=== PATIENT | female | born 1990 | race Caucasian/White ===

== ENCOUNTER 2021-11-27 22:42 | Emergency (ER) | payer OTHER, SELFPAY ==
[2021-11-27 22:47] VITALS: BP 119/92; PULSE 74; RESP 18; TEMP 36; O2SAT 100; BMI 33.0
--- NOTE | 2021-11-27 23:31 | ED.MEDCLEAR ---
HPI - Medical Clearance General Chief complaint: Body Fluid Exposure Stated complaint: needle stick - work related Time Seen by Provider: 11/27/21 22:48 Source: patient Mode of arrival: ambulatory History of Present Illness HPI Narrative: 31-year-old female with no significant past medical history presenting to the ED complaining needlestick s/p giving patient insulin [employer]. Patient is up-to-date on vaccinations. No blood on hub. Unknown HIV status of patient. MD complaint: medical clearance requested Onset (ago): minute(s) Related Information Allergies Allergy/AdvReac Type Severity Reaction Status Date / Time No Known Allergies Allergy Verified 11/27/21 22:47 Review of Systems Review of Systems: Constitutional: No Fever, No Chills ENT/Mouth: No Ear Pain, No sore throat, No Rhinorrhea, No Swallowing Difficulty Cardiovascular: No Chest Pain, No SOB Respiratory: No Cough Gastrointestinal: No Nausea, No Abdominal pain Musculoskeletal: No joint pain, No Myalgias Skin: + Skin Lesions, No rash Neuro: No Weakness, No Numbness, No Paresthesias Yes all other systems are reviewed and are negative [facility] Past Medical History Attestation statement: The following information was validated with the patient. Social History Social History Advance Directives: No Advance Directives Information Provided: No Physical Exam Vital Signs: Vital Signs: Last Vital Signs Temp 96.8 F 11/27/21 22:47 Pulse 74 11/27/21 22:47 Resp 18 11/27/21 22:47 BP 119/92 H 11/27/21 22:47 Pulse Ox 100 11/27/21 22:47 BMI result Body Mass Index 33.0 Const: General: cooperative, healthy appearing and no acute distress Orientation/consciousness: patient oriented x3 Limitations: no limitations HEENT: Head: Yes normal to inspection Ears: hearing grossly normal bilaterally General nose exam: Normal external nose present Face and sinus: Yes normal facial exam Eyes: General: appearance normal, both eyes and all related structures EOM: EOMs intact bilaterally Neck: Neck: Yes normal visual inspection Resp: Effort & Inspection: normal respiratory effort and no respiratory distress Cardio: Rate: regular rate Peripheral pulses: radial pulses present Skin: Other: No appreciable puncture site Rashes: no rashes Wounds: no wounds Neuro: General: patient oriented x3, gait normal and tone normal Gait exam (Neuro): Normal gait present Extrem: General: Yes normal to inspection Course Course Course Narrative: -labs unremarkable. HIV nonreactive > patient provided with PEP kit MDM - Medical Clearance MDM Narrative Medical decision making narrative: 31-year-old female with no significant past medical history presenting to the ED complaining needlestick s/p giving patient insulin [employer]. On exam VSS, NAD, will obtain post exposure labs on patient. Other patient in hospital, consent obtained for his labs as well. Plan: Will provide patient with PEP kit, if other patients HIV is negative can disregard Medical Records Attestation: I reviewed the patient's medical records. Lab Data Attestation: I reviewed the patient's lab results. Result diagrams: 11/28/21 01:22 11/27/21 23:34 Labs: Lab Results 11/27/21 11/27/21 11/28/21 Range/Units 23:34 23:34 01:22 WBC 6.8 (4.8-10.8) X10*3/uL RBC 4.10 L (4.20-5.50) X10*6/uL Hgb 12.5 (12.0-16.0) g/dl Hct 36.8 L (37.0-47.0) % MCV 89.8 (80.0-98.0) fL MCH 30.5 (27.0-33.0) pg MCHC 34.0 (31.0-35.0) g/dl RDW 11.9 (11.0-16.0) % Plt Count 201 (160-400) X10*3/uL MPV 10.2 (9.4-12.3) fL Immature Gran % (Auto) 0.1 (0.0-0.4) % Neut % (Auto) 71.8 (45-73) % Lymph % (Auto) 17.8 L (20-40) % [place] % (Auto) 9.0 (2-11) % Eos % (Auto) 1.0 (0-4) % Baso % (Auto) 0.3 (0-2) % Lymph # (Auto) 1.2 (1.2-4.9) X10*3/uL [place] # (Auto) 0.6 (0.1-1.2) X10*3/uL Eos # (Auto) 0.1 (0.0-0.4) X10*3/uL Baso # (Auto) 0.0 (0.0-0.2) X10*3/uL Abs Immat Gran (auto) 0.01 (0.00-0.03) X10*3/uL Absolute Neuts (auto) 4.9 (2.0-8.3) x10*3/uL Absolute Nucleated RBC 0.000 (0.0-0.012) X10*3/uL Nucleated RBC % (auto) 0.0 (0.0-0.2) /100WBC Sodium 137 (135-145) mmol/L Potassium 4.5 (3.3-5.1) mmol/L Chloride 105 (96-108) mmol/L Carbon Dioxide 23 (22-29) mmol/L Anion Gap 14 (12-20) BUN 11 (9-16) mg/dL Creatinine 0.70 (0.5-1.4) mg/dL Estim Creat Clear Calc 113.1 Estimated GFR > 60 Random Glucose 94 (60-115) mg/dL Calcium 9.4 (8.4-10.2) mg/dL Total Bilirubin 0.4 (0.0-1.0) mg/dL Direct Bilirubin 0.2 (0.0-0.5) mg/dL AST 15 (5-31) U/L ALT 11 (0-31) U/L Alkaline Phosphatase 61 (39-117) U/L Total Protein 7.0 (6.5-8.0) g/dL Albumin 4.3 (3.5-5.0) g/dL Lipase 57 (8-78) U/L HIV 1&2 Ab/P24 Ag 4thGn Nonreactive (Nonreactive) Discharge Plan Discharge Clinical Impression: Employee exposure to body fluids Patient Disposition: Home, Self-Care Instructions: Body Substance Exposure (ED) Additional Instructions: Your labs are unremarkable If patients labs indicate he has HIV you need to take PEP kit that was provided to you. If negative you may disregard Please follow-up with [facility] Referrals: [facility] [Outside] Airam Byrd MD [Physician] -
[2021-11-28 00:01] LABS: Alanine Aminotransferase 11 U/L (0-31); Albumin Level 4.3 g/dL (3.5-5.0); Alkaline Phosphatase 61 U/L (39-117); Anion Gap 14 (12-20); Aspartate Amino Transferase 15 U/L (5-31); Bilirubin Direct 0.2 mg/dL (0.0-0.5); Bilirubin Total 0.4 mg/dL (0.0-1.0); Blood Urea Nitrogen 11 mg/dL (9-16); Calcium 9.4 mg/dL (8.4-10.2); Carbon Dioxide 23 mmol/L (22-29); Chloride 105 mmol/L (96-108); Creatinine Clr Calc Pharmacy 113.1; Estimated Glomerular Filt Rate > 60; Glucose Random 94 mg/dL (60-115); Potassium 4.5 mmol/L (3.3-5.1); Sodium 137 mmol/L (135-145)
[2021-11-28 00:40] LABS: HIV AB/AG Nonreactive (Nonreactive); HIV Num 1 0.08 S/CO (0.00-0.99)
[2021-11-28 01:07] LABS: Lipase 57 U/L (8-78)
[2021-11-28 01:27] LABS: Basophils Percent Auto 0.3 % (0-2); Eosinophils Absolute Auto 0.1 X10*3/uL (0.0-0.4); Hematocrit 36.8 % (37.0-47.0); Hemoglobin 12.5 g/dl (12.0-16.0); Imm Gran Abs Auto 0.01 X10*3/uL (0.00-0.03); Imm Gran Pct Auto 0.1 % (0.0-0.4); Lymphocytes Absolute Auto 1.2 X10*3/uL (1.2-4.9); Lymphocytes Percent Auto 17.8 % (20-40); MANUAL DIFF FLAG NO; Mean Corpuscular Hemoglobin 30.5 pg (27.0-33.0); Mean Corpuscular Volume 89.8 fL (80.0-98.0); Mean Platelet Volume 10.2 fL (9.4-12.3); Monocytes Absolute Auto 0.6 X10*3/uL (0.1-1.2); Neutrophils Absolute Auto 4.9 x10*3/uL (2.0-8.3); Neutrophils Percent Auto 71.8 % (45-73); Platelet Count 201 X10*3/uL (160-400); Red Cell Distribution Width 11.9 % (11.0-16.0); White Blood Count 6.8 X10*3/uL (4.8-10.8)
[2021-11-28] MEDS: Post Exposure Medication Kit 1 KIT PO (01:52)
[2021-11-29 04:01] LABS: HBc Num1 0.11 S/CO (0.00-0.79); Hepatitis B Core Antibody Nonreactive (Nonreactive); ~Hepatitis C Antibody Nonreactive (Nonreactive)
[2021-11-29 04:13] LABS: HBS Num1 15.96 mIU/mL (0-7.99); ~Hepatitis B Surface Antibody REACTIVE (Nonreactive)
[2021-11-29 04:17] LABS: HBsAGNum1 0.16 S/CO (0.00-0.99); Hepatitis B Surface Antigen Negative (Negative)
== END 2021-11-28 01:54 | disposition home or self-care (01) ==
PROVIDERS: Physician Assistant; Emergency Provider Internal Medicine; PCP Registered Nurse
DX: Z04.2 Encounter for examination and observation following work accident (principal); Z77.21 Contact with and (suspected) exposure to potentially hazardous body fluids
CPT/HCPCS: 36415; 80048; 80076; 83690; 85025; 86704; 86706; 86803; 87340; 87389; 99283

== ENCOUNTER 2025-03-10 06:44 | Outpatient (REF) | payer OTHER, SELFPAY ==
[2025-03-10 07:05] LABS: MANUAL DIFF FLAG NO
[2025-03-10 07:32] LABS: Hematocrit 39.6 % (37.0-47.0); Hemoglobin 13.1 g/dl (12.0-16.0); Imm Gran Abs Auto 0.01 X10*3/uL (0.00-0.03); Imm Gran Pct Auto 0.2 % (0.0-0.4); Lymphocytes Absolute Auto 2.3 X10*3/uL (1.2-4.9); Mean Corpuscular HGB Conc 33.1 g/dl (31.0-35.0); Mean Corpuscular Hemoglobin 29.2 pg (27.0-33.0); Mean Corpuscular Volume 88.2 fL (80.0-98.0); NRBC Abs Auto 0.000 X10*3/uL (0.0-0.012); NRBC Pct Auto 0.0 /100WBC (0.0-0.2); Platelet Count 245 X10*3/uL (160-400); Red Blood Count 4.49 X10*6/uL (4.20-5.50); White Blood Count 6.3 X10*3/uL (4.8-10.8)
[2025-03-10 08:18] LABS: Hemoglobin A1C 115.0329 umol/L; Total Hemoglobin (HGBA1C) 3471.9496 umol/L
[2025-03-10 08:22] LABS: Alanine Aminotransferase 10 U/L (0-31); Albumin Level 4.4 g/dL (3.5-5.0); Alkaline Phosphatase 74 U/L (39-117); Anion Gap 13 (12-20); Aspartate Amino Transferase 17 U/L (5-31); Blood Urea Nitrogen 13 mg/dL (9-16); Calcium 8.8 mg/dL (8.4-10.2); Carbon Dioxide 24 mmol/L (22-29); Chloride 108 mmol/L (96-108); Cholesterol 152 mg/dL (<200); Estimated Glomerular Filt Rate > 60; HDL Cholesterol 60 mg/dL (>40); Potassium 3.8 mmol/L (3.3-5.1); Sodium 141 mmol/L (135-145); Total Protein 7.3 g/dL (6.5-8.0); Triglycerides 55 mg/dL (<150)
== END 2025-03-10 06:45 | disposition home or self-care (01) ==
LOC: HO.LAB 06:44
PROVIDERS: PCP Nurse Practitioner Family; Visit Provider Nurse Practitioner Family
DX: E66.812 Obesity, class 2 (principal); E66.09 Other obesity due to excess calories; Z68.36 Body mass index [BMI] 36.0-36.9, adult; N92.0 Excessive and frequent menstruation with regular cycle; R63.8 Other symptoms and signs concerning food and fluid intake
CPT/HCPCS: 36415; 80053; 80061; 83036; 84443; 85025

== ENCOUNTER 2025-04-22 09:00 | Outpatient (RCR) | payer OTHER, SELFPAY | END 2025-04-22 15:13 | disposition home or self-care (01) | LOC: HO.PT 09:00 | PROVIDERS: PCP Registered Nurse; Visit Provider Obstetrics & Gynecology | DX: M62.89 Other specified disorders of muscle (principal) | CPT/HCPCS: 97110; 97112; 97140; 97161; 97530 ==

== ENCOUNTER 2025-07-09 09:04 | Outpatient (AMB) | payer OTHER, SELFPAY ==
--- NOTE | 2025-07-09 09:04 | A.OFFPC_ITS ---
Vital Signs 07/09/25 09:07 Height 5 ft 2.01 in Weight 195 lb BMI 35.7 BP 131/66 Blood Pressure Location Rt brachial Position Sitting Respiration 14 Pulse 72 Pulse Source Pulse Oximeter Temp 97.2 F Temp Source Temporal Artery Scan Pulse Oximetry (%) 99 Oxygen Delivery Method Room Air Intake Visit Reasons: New patient physical Theatrical Trouper Required: No Accompanied by: Self / Same As Patient Allergies zolpidem (From Ambien) Allergy (Mild, Verified 07/09/25 09:23) adverse reaction Medication List - Last Reconciled 07/09/25 by Cyndi Sher PA-C No Known Home Meds Tobacco use date assessed: 07/09/25 Dental Screening Dental Screen Date: 07/09/25 Did you have a dental visit in the last 12 months?: Yes Did you have a dental problem in the last 6 months where you did not have access to dental care?: No Was dental information given to patient?: Patient has dentist HPI HPI Comments History of Present Illness Details History of Present Illness The patient is a 35-[facility]. She has a history of anxiety and reports feeling crazy overwhelmed lately, which she attributes to her new job or life in general. She previously took lorazepam 0.5 mg but did not like it. In March, she was started on Wellbutrin for anxiety and potential weight loss but experienced a significant adverse reaction where her entire left side, including under her tongue, went numb and she felt she was going to pass out. She stopped taking the medication, and these symptoms have not recurred. Her previous provider suggested she continue the medication and offered a follow-up in July. The patient has a family history of breast cancer in two maternal aunts. She has a history of a breast reduction with residual scar tissue and has had ultrasounds for lumps in the past. She previously experienced pain in her armpit and breast, which was dismissed by a prior provider as muscular. Past medical history is also significant for insomnia, for which she has taken trazodone in the past, and a history of vitamin D deficiency and headaches. Lab work from February showed a normal CBC, electrolytes, glucose, HbA1c of 5.2%, normal cholesterol, and normal thyroid function, with a mildly elevated total bilirubin of 1.1. Family history is positive for coronary artery disease and negative for colon cancer. For reproductive health, she is trying to get again and recently had her IUD removed. She reports being on control for most of her life and feels better since stopping, with resolution of brain fog. Social History - Marital Status and Family: Patient is and is trying to conceive. - Occupation: Works as a nurse in the [employer]. - Tobacco Use: Denies smoking. - Alcohol Use: Reports drinking socially . [facility] Medical History (Updated 07/09/25 @ 09:51 by Cyndi Sher PA-C) Healthcare maintenance Pre-conception counseling Adverse effect of bupropion Anxiety Encounter to establish care Insomnia Family History Father BP (high blood pressure) DVT (deep venous thrombosis) High cholesterol Mother Lupus (systemic lupus erythematosus) Social History Housing: House Alcohol intake: current Alcohol intake frequency: a few times a month Patient Tobacco Use Status: Never used Tobacco service: No Current occupational status: employed Cognitive needs: No Hearing needs: No Vision needs: No Questionnaire PHQ-9 Over the last 2 weeks, how often have you been bothered by any of the following problems? 1. Little interest or pleasure in doing things: not at all 2. Feeling down, depressed, or hopeless: not at all 3. Trouble falling or staying asleep, or sleeping too much: not at all 4. Feeling tired or having little energy: not at all 5. Poor appetite or overeating: not at all 6. Feeling bad about yourself - or that you are a failure or have let yourself or your family down: not at all 7. Trouble concentrating on things, such as reading the newspaper or watching television: not at all 8. Moving or speaking so slowly that other people could have noticed. Or the opposite - being so fidgety or restless that you have been moving around a lot more than usual: not at all 9. Thoughts that you would be better off or of hurting yourself in some way : not at all Total score: 0 Depression Screening Interpretation: Negative Depression Screening Done: Yes 80416 - PHQ-9 Billing: Yes Source: Developed by Drs. Deny L. Shonna, Joaquin Childers and colleagues, with an educational tiana from [employer]. Thrive Questionnaire Date Thrive assessed: 07/09/25 I am a: Patient What is your living situation today?: I have a steady place to live Within the past 12 months, did the food you bought not last and you didn't have the money to get more?: Never true Within the past 12 months, did you worry whether your food would run out before you got money to buy more?: Never true Do you have trouble paying for medicines?: No Do you have trouble getting transportation to medical appointments?: No Do you have trouble paying your heating and electricity bill?: No Do you have trouble taking care of your child, family member or friend?: No Do you have trouble with day-to-day activities such as bathing, preparing meals, shopping, managing finances, etc.?: No Are you currently unemployed and looking for a job?: No Are you interested in more education?: No Please select the resources that you would like help with: None THRIVE Score: 0 AUDIT C Alcohol Use Questionnaire (AUDIT-C) 1. How often do you have a drink containing alcohol?: 2-4 times a month 2. How many drinks containing alcohol do you have on a typical day when you are drinking?: 1 or 2 3. How often do you have six or more drinks on one occasion?: Never Total Score: 2 Score Reviewed/Action Taken: No SAYRA-7 AMB Questionnaire SAYRA-7 Date SAYRA - 7 assessed: 07/09/25 Feeling nervous, anxious, or on edge: 1 = Several days Not being able to stop or control worryin = Several days Worrying too much about different things: 1 = Several days Trouble relaxin = Several days Being so restless that it is hard to sit still: 0 = Not at all Becoming easily annoyed or irritable: 1 = Several days Feeling afraid as if something awful might happen: 0 = Not at all Total SAYRA-7 score (0-4 normal; 5-9 mild; 10-14 moderate; 15-21 severe): 5 Source: Developed by Yani Benavides Kurt Kroenke and colleagues, with an educational tiana from [employer]. SAYRA-7 Assessment Billing SAYRA-7 Assessment Tool: SAYRA-7 Assessment 93932 Review of Systems Narrative Review of Systems - Constitutional: Denies unintentional weight loss. - Psychiatric: Reports feeling crazy overwhelmed and a history of anxiety. - Reports history of insomnia. - Denies suicidal ideation or auditory/visual hallucinations. - Neurological: Reports a resolved episode of left-sided numbness including the arm and tongue after taking Wellbutrin. - Reports a history of headaches. - Breast: Reports a history of intermittent pain in her armpit and breast. - Denies any current lumps or pain. - Cardiovascular: Denies chest pain or shortness of breath with exertion or when lying flat. - Gastrointestinal: Denies abdominal pain, black or bloody stools. - Genitourinary: Denies urinary symptoms or blood in urine. - Denies flank pain. - HEENT: Reports history of yearly ear infections. Const All systems reviewed & are unremarkable except as noted in HPI and below Physical exam (Primary Care) Vital Signs: Last Vital Signs Temp 97.2 F 07/09/25 09:07 Pulse 72 07/09/25 09:07 Resp 14 07/09/25 09:07 BP 131/66 07/09/25 09:07 Pulse Ox 99 07/09/25 09:07 Oxygen Delivery Method Room Air 07/09/25 09:07 Care Plan Goal for BP management: <140/90 at Goal BMI result Body Mass Index 35.7 BMI Assessment/Plan discussion: High BMI High, discussed plan: lifestyle, weight reduction, dietary, physical activity, alcohol moderation and other Tobacco/Smoking Status: Tobacco use Status Tobacco use date assessed 07/09/25 07/09/25 09:14 Patient Tobacco Use Status Never used Tobacco 07/09/25 09:14 PHQ-9: PHQ-9 Score PHQ-9: Total score 0 07/09/25 09:14 Depression Screening Interpretation: Negative Thrive Assessment: Date of Thrive Assessment Date Thrive assessed 07/09/25 07/09/25 09:14 Narrative Physical Exam Appearance: Alert. Oriented X3. No acute distress. Head: Normal external exam. Normocephalic. Atraumatic. Eyes: Pupils are equal, round, and reactive to light. Extraocular movements intact. Conjunctiva and sclera normal. Eyelids normal. Ears: External auditory canal normal. Tympanic membranes normal. Some wax noted in one ear. Throat: Pharynx normal. Uvula midline. Moist mucous membranes. Neck: Normal inspection. Neck supple. Full range of motion. No adenopathy. Thyroid Normal. No meningeal signs. No neck mass noted. Cardiovascular: Normal heart rate and rhythm. Heart sound normal. No murmurs noted. Pulses normal throughout. Respiratory: No respiratory distress. Painless inspiration. Breath sounds normal. No wheezes/rales/rhonchi noted. No accessory muscle usage noted or decreased air movement noted. Back: No costovertebral angle tenderness. Full range of motion noted. Skin: Skin warm and dry. Normal skin color. Normal skin turgor. No rashes/lesions/lacerations noted. Extremities: Extremities exhibit normal range of motion. Neuro: Oriented X 3. No motor deficit. No sensory deficit. Reflexes normal. Office Procedures Flu Questionnaire Does the patient have a severe egg allergy?: No Does the patient have severe life threatening allergies?: No Does the patient have a fever or illness today?: No Has the patient ever had Guillain-Bancroft Syndrome?: No Has the patient ever had any past reaction to a flu shot?: No Immunizations Fluarix [id number] (PF) 45 mcg (15 mcg x 3)/0.5 mL IM syringe Performing Provider: Cyndi Sher PA-C [facility] Administered by: HEDY Araujo on 07/09/25 09:15 Dose Route Admin Location Dispensed Lot Number Expiration Date [facility] Medical Staff Physician 0.5 mL IM Left Deltoid 0.5 mL [id number] 02/17/26 [id number] [employer] VIS Given Date VIS Provided VIS Publication Date 07/09/25 Single Vaccine 24 Eligibility Eligibility Date Funding Source Not [facility] Eligible 07/09/25 Private Results Reviewed Results Reviewed: Results - Labs from February: - CBC: White blood cells, red blood cells, and platelets were normal. - CMP: Potassium, sodium, kidney function, and glucose were normal. - Hemoglobin A1c: 5.2%. - Liver Function Tests: Total bilirubin was slightly elevated at 1.1. - Other liver enzymes were normal. - Lipid Panel: Cholesterol was normal. - Thyroid: Normal. Coding Level of Care Code New Pt Level 4 (25530) Complex EM visit Add On G2211 Diagnoses Encounter to establish care Z76.89 Anxiety F41.9 Insomnia G47.00 Adverse effect of bupropion T43.295A Pre-conception counseling Z31.69 Healthcare maintenance Z00.00 Additional Codes PHQ-9 - 36295 - PHQ-9 Billing: Yes ([id number]) SAYRA-7 Assessment Billing - SAYRA-7 Assessment Tool: SAYRA-7 Assessment 57167 ([id number]) Time Spent (min) 60 Assessment & Plan Assessment & Plan (1) Encounter to establish care: Code(s): Z76.89 - Persons encountering health services in other specified circumstances Category: Medical Plan: The patient's history was reviewed, and recent labs from February were discussed. Orders will be placed for a urinalysis, vitamin B12, vitamin D, and magnesium level. A follow-up visit is scheduled in six months, at which time a physical will be conducted and labs will be reviewed. (2) Anxiety: Code(s): F41.9 - Anxiety disorder, unspecified Category: Medical Plan: The patient reports feeling overwhelmed and has a history of anxiety. She has previously taken lorazepam 0.5 mg. A prescription for Xanax 0.25 mg will be sent to the pharmacy. The patient was instructed she can increase the dose if needed after informing the provider and was cautioned against drinking, driving, or working while taking the medication. (3) Insomnia: Code(s): G47.00 - Insomnia, unspecified Category: Medical Plan: The patient reports a history of insomnia and has previously taken trazodone. She requested a new prescription, and trazodone 50 mg will be sent to the pharmacy for use at bedtime. (4) Adverse effect of bupropion: Comment: Cause numbness and tingling to the left side of the arm/face and tongue Code(s): T43.295A - Adverse effect of other antidepressants, initial encounter Category: Medical Plan: The patient experienced left-sided numbness and presyncope after starting Wellbutrin, which was identified as a rare side effect. The medication was discontinued by the patient, and the symptoms resolved. This will be documented as an adverse reaction, and the patient will not be re-challenged with bupropion. (5) Pre-conception counseling: Code(s): Z31.69 - Encounter for other general counseling and advice on procreation Category: Medical Plan: The patient is actively trying to conceive and recently had her IUD removed. She was taking hormonal contraception via a patch but will discontinue it. She will continue to follow up with her [employer] for preconception care. (6) Healthcare maintenance: Code(s): Z00.00 - Encounter for general adult medical examination without abnormal findings Category: Medical Plan: The patient has a family history of breast cancer in two maternal aunts. She was advised to return for an examination if she feels a new lump or has recurrent pain. If a concerning finding is present, the plan is to order an ultrasound and a diagnostic mammogram. Plan Plan Patient was informed and verbally consented to the use of an ambient scribe for clinic note documentation during this visit. 1. New Patient Establishment Of Care The patient's history was reviewed, and recent labs from February were discussed. Orders will be placed for a urinalysis, vitamin B12, vitamin D, and magnesium level. A follow-up visit is scheduled in six months, at which time a physical will be conducted and labs will be reviewed. 2. Anxiety The patient reports feeling overwhelmed and has a history of anxiety. She has previously taken lorazepam 0.5 mg. A prescription for Xanax 0.25 mg will be sent to the pharmacy. The patient was instructed she can increase the dose if needed after informing the provider and was cautioned against drinking, driving, or working while taking the medication. 3. Insomnia The patient reports a history of insomnia and has previously taken trazodone. She requested a new prescription, and trazodone 50 mg will be sent to the pharmacy for use at bedtime. 4. Adverse Effect Of Bupropion The patient experienced left-sided numbness and presyncope after starting Wellbutrin, which was identified as a rare side effect. The medication was discontinued by the patient, and the symptoms resolved. This will be documented as an adverse reaction, and the patient will not be re-challenged with bupropion. 5. Preconception Counseling The patient is actively trying to conceive and recently had her IUD removed. She was taking hormonal contraception via a patch but will discontinue it. She will continue to follow up with her [employer] for preconception care. 6. Health Supervision For Adult, Family History Of Breast Malignancy The patient has a family history of breast cancer in two maternal aunts. She was advised to return for an examination if she feels a new lump or has recurrent pain. If a concerning finding is present, the plan is to order an ultrasound and a diagnostic mammogram. Discussion Notes I established care with this pleasant 35-year-old female today. We reviewed her recent lab work from February, which was mostly normal except for a mildly elevated bilirubin that we will monitor. I will order a urinalysis and check her vitamin D, B12, and magnesium levels, as she has a history of vitamin D deficiency and experienced neurological symptoms. We discussed the significant adverse reaction of left-sided numbness she experienced after starting Wellbutrin. I confirmed this is a rare side effect and advised her not to take this medication again, which she agreed with. For her reported anxiety and feelings of being overwhelmed, we discussed options. We decided to try a low dose of lorazepam 0.25 mg as needed. I counseled her on the risks, including not driving or working after taking it. I also refilled her trazodone for insomnia. Regarding her family history of breast cancer and past breast pain, I advised her to return for an exam if she feels any new lumps or pain. I explained that if there is a clinical finding, we would proceed with an ultrasound and diagnostic mammogram. We also discussed her plans to conceive and her decision to stop hormonal contraception. We agreed on a follow-up visit in six months, at which point we will do a full physical and review her new lab work. She knows to contact me sooner if any new issues arise. Orders: Orders Influenza [id number] Immunization Today Z23 - Encounter for immunization UA CC w/rflx Micro + Cult Today Z00.00 - Encounter for general adult medical examination without abnormal findings Vitamin B12 and Folate Today Z00.00 - Encounter for general adult medical examination without abnormal findings Vitamin D 25-OH Total Today Z00.00 - Encounter for general adult medical examination without abnormal findings Magnesium Today Z00.00 - Encounter for general adult medical examination without abnormal findings Medications: New trazodone 50 mg PO BEDTIME PRN 90 tabs 3RF sleep G47.00 - Insomnia, unspecified alprazolam (Xanax) 0.25 mg PO BEDTIME PRN 30 tabs 0RF sleep Patient Instructions: Patient Instructions - For your anxiety, take one lorazepam 0.25 mg tablet as needed when you feel overwhelmed. - Do not drink alcohol, drive, or go to work after taking it. - If you feel one tablet is not enough, you may take two, but please let me know. - A prescription for Trazodone 50 mg for sleep has been sent to your pharmacy. - Do not take Wellbutrin (bupropion) again, as it caused a serious side effect for you. - Please go to the lab to get bloodwork (Vitamin D, B12, Magnesium) and provide a urine sample. - You do not need to fast for these tests. - If you feel a new lump in your breast or if your breast pain returns, please make an appointment to come in for an exam. - Continue following up with your [facility] doctor for your annual exams and for planning your . - Please schedule a follow-up appointment in six months for your first check-up, and then we will plan for yearly visits. - Call the office if you get sick or have any new concerns before then.
[2025-07-09 09:07] VITALS: BP 131/66; PULSE 72; RESP 14; TEMP 36.2; O2SAT 99; BMI 35.7
--- OUTSIDE RECORDS SUMMARY | 2025-07-09 16:55 | XMS_ITS | Encounter Summary ---
Author Organization [facility] Address [address] [place] [address] Phone Care Team Providers Care Flatwork Washer Name Role Phone Jemma Roberts MD Primary Care Provider [phone] Encounter Details Date Type Department Care Team (Late st Contact Info) Description 04/06/2017 Conversion Encounter [facility] [address] [place] [address] Social History Tobacco Use Types Packs/Day Years Used Date Smoking Tobacco: Never Comments:Never smoker Comments Unknown Sex and Gender Information Value Date Recorded Sex Assigned at Not on file Legal Sex Female 4:50 PM EDT Gender Identity Not on file Sexual Orientation Not on file documented as of this encounter Plan of Treatment Not on file documented as of this encounter Visit Diagnoses Not on filedocumented in this encounter Care Teams Flatwork Washer Relationship Specialty Start Date End Date Jemma Roberts MD [address] [place] [address] PCP - General 03/31/17 11/29/22 documented as of this encounter
--- OUTSIDE RECORDS SUMMARY | 2025-07-09 16:55 | XMS_ITS | Encounter Summary ---
Author Organization [facility] Address [address] [place] [address] Phone Care Team Providers Care Speech And Language Specialist Name Role Phone Jemma Roberts MD Primary Care Provider [phone] Encounter Details Date Type Department Care Team (Late st Contact Info) Description 11/11/2011 Documentation [facility] [place] Family Medicine [address] [place] [address] Family Medicine, Physician [address], [place] [phone] Social History Tobacco Use Types Packs/Day Years Used Date Smoking Tobacco: Never Assessed Comments Unknown Sex and Gender Information Value Date Recorded Sex Assigned at Not on file Legal Sex Female 4:50 PM EDT Gender Identity Not on file Sexual Orientation Not on file documented as of this encounter Plan of Treatment Not on file documented as of this encounter Visit Diagnoses Not on filedocumented in this encounter Care Teams Speech And Language Specialist Relationship Specialty Start Date End Date Jemma Roberts MD [address] [facility] [place] [address] PCP - General 03/31/17 11/29/22 documented as of this encounter
--- OUTSIDE RECORDS SUMMARY | 2025-07-09 16:55 | XMS_ITS | Encounter Summary ---
Author Organization [facility] Address [address] [place] [address] Phone Care Team Providers Care Wet Process Head Miller Name Role Phone Jemma Roberts MD Primary Care Provider [phone] Encounter Details Date Type Department Care Team (Late st Contact Info) Description 01/03/2011 Documentation [facility] Family Medicine [address] [place] [address] Family Medicine, Physician [address], [place] [phone] Social History Tobacco Use Types Packs/Day Years [...] on filedocumented in this encounter Care Teams Wet Process Head Miller Relationship Specialty Start Date End Date Jemma Roberts MD [address] [facility] [place] [address] PCP - General 03/31/17 11/29/22 documented as of this encounter
--- OUTSIDE RECORDS SUMMARY | 2025-07-09 16:55 | XMS_ITS | Clinical Summary ---
Author Organization [facility] Address [address] [place] [address] Phone Care Team Providers Care Bait Maker Name Role Phone Unavailable Primary Care Provider Unavailabl e Immunizations Immunization Administration Dates Next Due DTP 12/26/1996, 4,1992,08/28,1992 HPV, Quadrivalent 10/10/2007,05/29/2007,03/27/20 07 Hep B, ped/adol 02/15/1993,1992,1992 Hib (PRP-T) 07/26/1993, 3,1992,05/28 Influenza Split 05/27/2011 Influenza, injectable, trivalent 05/13/2009 MMR 12/26/1996,07/26/1993 Meningococcal Conj (Menactra) MCV4P 03/27/2007 OPV 12/26/1996, 4,1992,05/28 Td (adult) (MBL), 2 Lf tetan us toxoid, PF, adsorbed 01/20/2004 Tdap 05/08/2008 Family History Relation Name Status Comments Brother Alive Brother: Alive and well Father Alive Father: elevate d cholesteral Mother Mother: Systemi c lupus erythematosus Other Family history of Cancer, breast, Family history of Sudden /[place] under age 55 Sister Alive Sister: Alive a nd well Social History Tobacco Use Types Packs/Day Years Used Date Smoking Tobacco: Never Comments:Never smoker Comments Unknown Sex and Gender Information Value Date Recorded Sex Assigned at Not on file Legal Sex Female 4:50 PM EDT Gender Identity Not on file Sexual Orientation Not on file Last Filed Vital Signs Vital Sign Reading Time Taken Comments Blood Pressure 111/72 04/10/2013 12:00 AM EDT Pulse 72 04/10/2013 12:00 AM EDT Temperature 36.8 C (98.3 F) 04/10/2013 12:00 AM EDT Respiratory Rate - - Oxygen Saturation - - Inhaled Oxygen Concentration - - Weight 65.4 kg (144 lb 3.2 oz) 04/10/2013 12:00 AM EDT Height 154.9 cm (5' 1 ) 04/10/2013 12:00 AM EDT Body Mass Index 27.25 04/10/2013 12:00 AM EDT Plan of Treatment Health Maintenance Due Date Last Done Comments Varicella Vaccines (1 of 2 - 13+ 2-dose series) 2005 DTaP,Tdap,and Td Vaccines (7 - Td or Tdap) 05/08/2018 05/08/2008, 01/20/2004, 12/26/1996, Additional history exists Influenza Vaccines (#1) 2025 05/27/2011, 05/13 COVID-19 Vaccine ( season) 2025 Hepatitis B Vaccines Completed 02/15/1993, 1992, 1992 HIB Vaccines Completed 07/26/1993, 10/19, 1992, Additional history exists IPV Vaccines Completed 12/26/1996, 09/22, 1992, Additional history exists MMR Vaccines Completed 12/26/1996, 07/26/1993 Meningococcal Vaccine Aged Out 03/27/2007 No izabel lyn eligible based on patient's age to complete this topic HPV Vaccines Completed 10/10/2007, 04/2007, 03/27/2007 Hepatitis A Vaccines Aged Out No long er eligible based on patient's age to complete this topic Men B Vaccine Aged Out No longer elig ible based on patient's age to complete this topic Pneumococcal Vaccine Aged Out No long er eligible based on patient's age to complete this topic Procedures * Due to [place] playnik law, this organization might not be sharing sensitive test results. Procedure Name Priority Date/Time Associated Diagnosis Comments CHLAMYDIA AND GONORRHEA, AMPLIFIED Routine 04/11/2013 3:25 PM EDT from Last 3 Months or Most Recently Relevant to Health Maintenance Results * Due to [place] playnik law, this organization might not be sharing sensitive test results. * Chlamydia and Gonorrhoea, Amplified (04/11/2013 3:25 PM EDT) URINE CHLAMYDIA AMP PROBE NEGATIVE [facility] Comment: NO CHLAMYDIA TRACHOMATIS RNA DETECTED IN THIS PATIENT'S SAMPLE. (REFERENCE RANGE/NORMAL VALUE: NOT DETECTED) URINE GC AMP PROBE NEGATIVE [facility] Comment: NO NEISSERIA GONORRHOEAE RNA DETECTED IN THIS PATIENT'S SAMPLE. (REFERENCE RANGE/NORMAL VALUE: NOT DETECTED) NOTE: THIS TEST USES NURSES SUPERINTENDENT-MEDIATED AMPLIFICATION METHOD TO DETECT rRNA FROM C.TRACHOMATIS AND N.GONORRHOEAE. A NEGATIVE RESULT DOES NOT PRECLUDE INFECTION. THE APTIMA COMBO 2 ASSAY IS NOT INTENDED FOR THE EVALUATION OF SUSPECTED SEXUAL ABUSE OR FOR OTHER MEDICO LEGAL INDICATIONS. THERAPEUTIC FAILURE OR SUCCESS CANNOT BE DETERMINED WITH THE APTIMA COMBO 2 ASSAY SINCE NUCLEIC ACID MAY PERSIST FOLLOWING APPROPRIATE ANTIMICROBIAL THERAPY. IN THE CASE OF A NEGATIVE URINE RESULT, TESTING OF AN ENDOCERVICAL (FEMALE) OR URETHRAL (MALE) SPECIMEN IS RECOMMENDED IF THERE IS HIGH CLINICAL SUSPICION OF INFECTION. 04/11/2013 3:25 PM EDT Narrative [facility] - 04/11/2013 3:25 PM EDT URINE CHLAMYDIA GC AMP PROBE us Jemma Roberts MD LAB MICROBIOLOGY - GENERAL ORDER SHERI Final Result [facility] [address] [place] [address], [place] from Last 3 Months or Most Recently Relevant to Health Maintenance
--- OUTSIDE RECORDS SUMMARY | 2025-07-09 16:55 | XMS_ITS | Patient Health Record ---
Author Organization [facility] Address [address] [facility] [place] [address] Care Team Providers Care Cigarette Making Examiner Name Role Phone Efren Fleming MD Primary Care Provider Jeffry Elizondo Unavailable [phone] Allergies No Known Allergies Reason For Referral No Information Medications Medication SIG (Take, Route, Frequency, Duration) Notes Start Date End Date Status Ortho Tri-Cyclen (28) 0.18/0.215/0.25 MG-35 MCG 1 tablet Orally Once a day; Duration: 28 day(s) Not-Taj ing Ortho Tri-Cyclen (28) 0.18/0.215/0.25 MG-35 MCG 1 tablet Orally Once a day; Duration: 28 day(s) Not-Taj ing Social History Tobacco Use: Social History Observation Description Date Details (start date - stop date) Never Smoker NA - NA Tobacco Use/Smoking Question Answer Notes Are you a: nonsmoker Additional Findings: Tobacco Non-User Current no n-smoker Alcohol Screen Question Answer Notes Did you have a drink contain ing alcohol in the past year? Yes How often did you have a dri nk containing alcohol in the past year? 2 to 3 times a week (3 points) Points 3 Interpretation Positive Tobacco use other than smoking: Question Answer Notes Are you an other tobacco user? No Problems Problem Type SNOMED Code ICD Code Onset Dates Problem Status W/U Status Risk Notes Problem Ingrowing nail (002862736) Ingrowing nail (L60.0) Active confirmed Plan Of Treatment Pending Test Test Name Order Date [id number] Plate 03/04/2022 [id number] 07/05/2013 26783- Debride <25 sq cm 07/26/2013 95271 I&D ABSCESS- SIMPLE,SINGLE 012 [id number] I&D ABSCESS- SIMPLE,SINGLE 013 [id number] I&D ABSCESS- SIMPLE,SINGLE 023 Insurance Providers Payer Name Payer Address Payer Phone Subscriber Number Group Number Insured Name Patient Relationship to Insured Coverage Start Date Coverage End Date [employer] Benefits [address] [address] [place] [address] [id number] Lelo Horton Self - patient is the insured Medical (General) History Medical History History ICD Code chicken pox Surgical History Surgery Date(Month/Year) elective sx 08/26/2013
--- OUTSIDE RECORDS SUMMARY | 2025-07-09 16:55 | XMS_ITS | Clinical Summary ---
Author Organization [facility] Address [address] [place] [address] Care Team Providers Care Granite Polisher Name Role Phone Unavailable Primary Care Provider Unavailabl e Social History Tobacco Use Types Packs/Day Years Used Date Smoking Tobacco: Never Assessed Comments Unknown Sex and Gender Information Value Date Recorded Sex Assigned at Not on file Legal Sex Female 7:13 PM EDT Gender Identity Not on file Sexual Orientation Not on file Plan of Treatment Health Maintenance Due Date Last Done Comments Hepatitis C Virus Screening 1992 HIV Screening 2005 DTaP/Tdap/Td Vaccines (1 - Tdap) 2011 Hepatitis B Vaccines (1 of 3 - 19+ 3-dose series) 2011 COVID-19 Vaccine ( - 2023-2 5 season) 2025 HPV Vaccines (No Doses Required) Completed Pneumococcal Vaccine: Pediat enzo (0-5 Years) and At-Risk Patients (6 to 49 Years) Aged Out No longer eligible b ased on patient's age to complete this topic
--- OUTSIDE RECORDS SUMMARY | 2025-07-09 16:55 | XMS_ITS | Encounter Summary ---
Author Organization [facility] Address [address] [place] [address] Phone Care Team Providers Care Camp Advisor Name Role Phone Jemma Roberts MD Primary Care Provider Encounter Details Date Type Department Care Team (Late st Contact Info) Description 01/08/2010 Documentation [facility] [place] [address] [place] [address] Family Medicine, Physician [address] [phone] Social History Tobacco Use Types Packs/Day Years [...] on filedocumented in this encounter Care Teams Camp Advisor Relationship Specialty Start Date End Date Jemma Roberts MD [address] [facility] [place] [address] PCP - General 03/31/17 11/29/22 documented as of this encounter
== END 2025-07-09 09:44 | disposition home or self-care (01) ==
PROVIDERS: PCP Physician Assistant Medical; Visit Provider Physician Assistant Medical
DX: Z76.89 Persons encountering health services in other specified circumstances (principal); F41.9 Anxiety disorder, unspecified; G47.00 Insomnia, unspecified; T43.295A Adverse effect of other antidepressants, initial encounter; Z31.69 Encounter for other general counseling and advice on procreation; Z00.00 Encounter for general adult medical examination without abnormal findings; Z23 Encounter for immunization

== ENCOUNTER → 2025-07-09 09:04 | Outpatient (BNVA) | payer OTHER, SELFPAY | PROVIDERS: PCP Physician Assistant Medical; Visit Provider Physician Assistant Medical | DX: Z00.00 Encounter for general adult medical examination without abnormal findings (principal); Z76.89 Persons encountering health services in other specified circumstances; Z31.69 Encounter for other general counseling and advice on procreation; Z23 Encounter for immunization; F41.9 Anxiety disorder, unspecified; G47.00 Insomnia, unspecified; T43.295A Adverse effect of other antidepressants, initial encounter | CPT/HCPCS: 90471; 90656; 96127 ==